=== PATIENT | female | born 1950 | race African-American/Black ===

== ENCOUNTER 2021-09-25 23:05 | Inpatient (IN) | payer MEDICARE, MEDICAID ==
[~2021-09-25] VITALS: Ht 162.6 cm; Wt 60.8 kg
[2021-09-26 01:01] LABS: CLARITY URINE CLEAR (CLEAR); COLOR URINE YELLOW (YELLOW); KETONES URINE NEGATIVE (NEGATIVE); LEUKOCYTE ESTERASE URINE 1+ (NEGATIVE); NITRITE URINE NEGATIVE (NEGATIVE); OCCULT BLOOD URINE NEGATIVE (NEGATIVE); PH URINE 5.5 (4.5-8.0); PROTEIN URINE TRACE (NEGATIVE); SPECIFIC GRAVITY URINE 1.011 (1.005-1.030); UROBILINOGEN URINE 0.2 E.U./dL (0.2-1.0)
[2021-09-26 01:08] LABS: HEMATOCRIT. 36.4 % (36.0-48.0); HEMOGLOBIN. 11.6 g/dL (12.0-16.0); MEAN CORPUSCULAR HEMOGLOBIN 26.2 pg (28.0-32.0); MEAN CORPUSCULAR VOLUME 82.1 fL (81.0-99.0); MEAN PLATELET VOLUME 8.1 fl (7.4-10.4); PLATELET 278 x1000/uL (130-400); RED BLOOD CELL COUNT 4.44 mill/uL (4.2-5.4); RED CELL DISTRIBUTION WIDTH 14.8 % (11.6-14.6)
[2021-09-26] MEDS ORDERED: CEFTRIAXONE 1 G PREMIX 50 ML IV NR (01:15)
[2021-09-26 01:18] LABS: CHLORIDE 106 mEq/L (98-107)
[2021-09-26 04:43] LABS: PLATELET ESTIMATE NORMAL
[2021-09-26] MEDS ORDERED: IOHEXOL-300 100 ML BOTTLE ONE (05:01)
[2021-09-26 09:00] VITALS: BP 158/75
[2021-09-26] MEDS ORDERED: CLONIDINE 0.1MG TABLET PO PRN (09:30)
[2021-09-26] MEDS ORDERED: DOCUSATE SODIUM 100MG CAPSULE PO PRN (09:30)
[2021-09-26] MEDS ORDERED: HYDROCODONE/ACETAMINOPHEN 5/325MG TABLET PO PRN (09:30)
[2021-09-26] MEDS ORDERED: ACETAMINOPHEN 325MG TABLET PO PRN (09:30)
[2021-09-26] MEDS ORDERED: ONDANSETRON HCL 4MG/2ML INJ IV PRN (09:30)
[2021-09-26] MEDS ORDERED: NALOXONE HCL 0.4MG/ML VIAL IV PRN (09:45)
[2021-09-26 11:23] VITALS: BP 158/75
[2021-09-26 12:00] VITALS: BP 141/74
[2021-09-26] MEDS: POTASSIUM CHLORIDE 20MEQ TABLET SR PO SCH (13:25)
[2021-09-26 16:00] VITALS: BP 154/74
[2021-09-26 18:01] LABS: TOTAL IRON BINDING CAPACITY 243 ug/dL (250-450)
[2021-09-26 18:23] LABS: FERRITIN 62 ng/mL (10-291)
[2021-09-26 18:36] LABS: FOLIC ACID (FOLATE) SERUM >20 ng/mL ng/mL (>5.38); VITAMIN B12 SERUM 1660 pg/mL (211-911)
[2021-09-26] MEDS: PANTOPRAZOLE SODIUM 40 MG/VIAL IV SCH (18:49)
[2021-09-26 19:55] LABS: HEMATOCRIT. 32.8 % (36.0-48.0); HEMOGLOBIN. 10.6 g/dL (12.0-16.0); MEAN CORPUSCULAR HEMOGLOBIN 26.1 pg (28.0-32.0); MEAN CORPUSCULAR VOLUME 81.2 fL (81.0-99.0); MEAN PLATELET VOLUME 8.8 fl (7.4-10.4); PLATELET 255 x1000/uL (130-400); RED BLOOD CELL COUNT 4.05 mill/uL (4.2-5.4); RED CELL DISTRIBUTION WIDTH 14.7 % (11.6-14.6)
[2021-09-26 20:00] VITALS: BP 159/85
[2021-09-26 22:03] LABS: PLATELET ESTIMATE NORMAL
[2021-09-27] VITALS: BP 124/63
[2021-09-27 01:30] LABS: HEMATOCRIT 27.4 % (36.0-48.0); HEMOGLOBIN 9.1 g/dL (12.0-16.0)
[2021-09-27] MEDS: PANTOPRAZOLE SODIUM 40 MG/VIAL IV SCH ×2 (02:44→17:36)
[2021-09-27 04:00] VITALS: BP 143/86
[2021-09-27 06:12] LABS: CHLORIDE 112 mEq/L (98-107)
[2021-09-27 06:21] LABS: HEMATOCRIT. 30.4 % (36.0-48.0); HEMOGLOBIN. 9.9 g/dL (12.0-16.0); MEAN CORPUSCULAR HEMOGLOBIN 26.3 pg (28.0-32.0); MEAN PLATELET VOLUME 8.9 fl (7.4-10.4); PLATELET 207 x1000/uL (130-400); RED BLOOD CELL COUNT 3.75 mill/uL (4.2-5.4); RED CELL DISTRIBUTION WIDTH 14.6 % (11.6-14.6)
[2021-09-27 06:35] LABS: HAPTOGLOBIN < 30 mg/dL (30-200)
[2021-09-27 08:02] VITALS: BP 141/68
[2021-09-27] MEDS: POTASSIUM CHLORIDE 20MEQ TABLET SR PO SCH (09:46)
[2021-09-27 12:00] VITALS: BP 145/65
[2021-09-27 14:02] LABS: PLATELET ESTIMATE NORMAL
[2021-09-27 15:33] LABS: HEMATOCRIT 34.6 % (36.0-48.0); HEMOGLOBIN 10.8 g/dL (12.0-16.0)
[2021-09-27 16:00] VITALS: BP 134/68
[2021-09-27 19:22] LABS: HEMATOCRIT 35.4 % (36.0-48.0)
[2021-09-27 20:00] VITALS: BP 116/59
[2021-09-28] VITALS: BP 144/73
[2021-09-28] MEDS: PANTOPRAZOLE SODIUM 40 MG/VIAL IV SCH (03:44)
[2021-09-28 04:00] VITALS: BP 139/63
[2021-09-28 06:33] LABS: HEMOGLOBIN. 9.2 g/dL (12.0-16.0); MEAN CORPUSCULAR HEMOGLOBIN 26.8 pg (28.0-32.0); MEAN CORPUSCULAR VOLUME 81.6 fL (81.0-99.0); MEAN PLATELET VOLUME 8.6 fl (7.4-10.4); PLATELET 223 x1000/uL (130-400); RED BLOOD CELL COUNT 3.43 mill/uL (4.2-5.4)
[2021-09-28 07:54] LABS: CHLORIDE 111 mEq/L (98-107)
[2021-09-28 08:00] VITALS: BP 125/78
[2021-09-28 10:20] VITALS: BP 125/78
[2021-09-28] MEDS: POTASSIUM CHLORIDE 20MEQ TABLET SR PO SCH (10:32)
[2021-09-29 07:16] LABS: PLATELET ESTIMATE NORMAL
== END 2021-09-28 10:45 | disposition home or self-care (01) | DRG 253 ==
LOC: ER 23:05 → 6WST 09-26 02:33 → ENRESERV 09-26 07:14
PROVIDERS: ADMIT Hospitalist; ATTEND Hospitalist
DX: K55.21 Angiodysplasia of colon with hemorrhage (principal); K76.89 Other specified diseases of liver; D50.0 Iron deficiency anemia secondary to blood loss (chronic); D72.829 Elevated white blood cell count, unspecified; N28.1 Cyst of kidney, acquired; N39.0 Urinary tract infection, site not specified; R59.9 Enlarged lymph nodes, unspecified; I10 Essential (primary) hypertension; K64.9 Unspecified hemorrhoids
CPT/HCPCS: 36415; 71045; 74177; 80048; 80053; 81003; 82270; 82607; 82728; 82746; 83010; 83540; 83550; 83615; 83735; 85014; 85018; 85025; 85044; 86880; 93970; 99285; C9113; J0696; Q9967

== ENCOUNTER 2022-07-08 13:55 | Inpatient (IN) | payer MEDICARE, MEDICAID ==
[~2022-07-08] VITALS: Ht 162.6 cm; Wt 53.5 kg
[2022-07-08 17:10] LABS: CHLORIDE 111 mEq/L (98-107)
[2022-07-08 17:16] LABS: HEMATOCRIT. 32.6 % (36.0-48.0); HEMOGLOBIN. 10.9 g/dL (12.0-16.0); MEAN CORPUSCULAR HEMOGLOBIN 27.9 pg (28.0-32.0); MEAN CORPUSCULAR VOLUME 83.8 fL (81.0-99.0); MEAN PLATELET VOLUME 9.1 fl (7.4-10.4); PLATELET 63 x1000/uL (130-400); RED BLOOD CELL COUNT 3.89 mill/uL (4.2-5.4); RED CELL DISTRIBUTION WIDTH 14.9 % (11.6-14.6)
[2022-07-08] MEDS ORDERED: SODIUM CHLORIDE 0.9% 1000ML BAG (SEPSIS BOLUS) IV ONE (18:00)
[2022-07-08 20:11] LABS: CHLORIDE 111 mEq/L (98-107); INR 1.1; PARTIAL THROMBOPLASTIN TIME 27.1 sec (23.4-31.0); PROTHROMBIN TIME 11.7 sec (9.6-11.0)
[2022-07-08 20:27] LABS: PLATELET ESTIMATE DECREASED
[2022-07-09] MEDS ORDERED: FERR-71 MT (03:02)
[2022-07-09] MEDS ORDERED: AMLO10TA80 PO (03:02)
[2022-07-09] MEDS ORDERED: CALC-1042 MT (03:02)
[2022-07-09 03:16] VITALS: BP 124/67
[2022-07-09 04:00] VITALS: BP 131/61
[2022-07-09] MEDS ORDERED: ACETAMINOPHEN 325MG TABLET PO PRN (09:30)
[2022-07-09] MEDS ORDERED: ONDANSETRON HCL 4MG/2ML INJ IV PRN (09:30)
[2022-07-09] MEDS ORDERED: IPRATROPIUM/ALBUTEROL 0.5-3(2.5)MG/3ML NEB HHN PRN (09:30)
[2022-07-09] MEDS ORDERED: DIPHENHYDRAMINE 50MG/ML VIAL IV PRN (09:30)
[2022-07-09] MEDS ORDERED: CLONIDINE 0.1MG TABLET PO PRN (09:30)
[2022-07-09 13:10] LABS: HEPATITIS B SURFACE ANTIGEN NEGATIVE
[2022-07-09] MEDS: AMLODIPINE 10MG TABLET PO SCH (14:50)
[2022-07-09 20:00] VITALS: BP 118/80
[2022-07-09 23:52] VITALS: BP 128/62
[2022-07-10 04:00] VITALS: BP 142/87
[2022-07-10 06:41] LABS: HEMATOCRIT. 31.9 % (36.0-48.0); HEMOGLOBIN. 10.3 g/dL (12.0-16.0); MEAN CORPUSCULAR HEMOGLOBIN 27.7 pg (28.0-32.0); MEAN CORPUSCULAR VOLUME 85.5 fL (81.0-99.0); MEAN PLATELET VOLUME 9.1 fl (7.4-10.4); RED BLOOD CELL COUNT 3.73 mill/uL (4.2-5.4); RED CELL DISTRIBUTION WIDTH 14.7 % (11.6-14.6)
[2022-07-10 07:02] LABS: CHLORIDE 109 mEq/L (98-107)
[2022-07-10 07:57] LABS: HAPTOGLOBIN < 8 mg/dL (30-200)
[2022-07-10 08:00] VITALS: BP 128/71
[2022-07-10] MEDS: AMLODIPINE 10MG TABLET PO SCH (09:00)
[2022-07-10 11:51] VITALS: BP 128/71
[2022-07-11 11:16] LABS: PLATELET ESTIMATE MARKEDLY DECREASED
[2022-07-11 11:18] LABS: PLATELET 38 x1000/uL (130-400)
== END 2022-07-10 14:19 | disposition home or self-care (01) | DRG 691 ==
LOC: ER 13:55 → MICUSO 22:48 → 7EST 07-09 03:10
PROVIDERS: ADMIT Internal Medicine; ATTEND Internal Medicine
DX: C95.90 Leukemia, unspecified not having achieved remission (principal); D69.6 Thrombocytopenia, unspecified; I10 Essential (primary) hypertension; C91.10 Chronic lymphocytic leukemia of B-cell type not having achieved remission
CPT/HCPCS: 36415; 71045; 80053; 83010; 83605; 83615; 83880; 84145; 84484; 84550; 85025; 86803; 86850; 86880; 86900; 87340; 93005; 93970; 99285; J7030

== ENCOUNTER 2023-05-16 15:35 | Emergency (ER) | payer MEDICARE, MEDICAID ==
[~2023-05-16] VITALS: Ht 162.6 cm; Wt 52.0 kg
[~2023-05-16 15:35] MED LIST: AMLO10TA80 PO; CALC-1042 MT; FERR-71 MT
[2023-05-16 15:50] VITALS: BP 117/54; PULSE 91; RESP 12; TEMP 98.5; O2SAT 100
[2023-05-16 19:11] LABS: HEMATOCRIT. 33.3 % (36.0-48.0); HEMOGLOBIN. 10.8 g/dL (12.0-16.0); MEAN CORPUSCULAR HEMOGLOBIN 25.8 pg (28.0-32.0); MEAN CORPUSCULAR HGB CONC 32.4 g/dL (31.0-37.0); MEAN CORPUSCULAR VOLUME 79.7 fL (81.0-99.0); MEAN PLATELET VOLUME 12.2 fl (7.4-10.4); RED BLOOD CELL COUNT 4.17 mill/uL (4.2-5.4); RED CELL DISTRIBUTION WIDTH 15.5 % (11.6-14.6)
[2023-05-16 19:15] LABS: DIFFERENTIAL COMMENT 1; PLATELET 9 x1000/uL (130-400); WHITE BLOOD COUNT 234.2 x1000/uL (4.5-11.0)
[2023-05-16 19:19] LABS: ALANINE AMINOTRANSFERASE 8 IU/L (10-49); ASPARTATE AMINOTRANSFERASE 23 IU/L (<34); BILIRUBIN TOTAL 0.6 mg/dL (0.1-1.0); CALCIUM 9.2 mg/dL (8.7-10.4); CARBON DIOXIDE 24 mEq/L (21-32); CHLORIDE 106 mEq/L (98-107); GLUCOSE 108 mg/dL (70-105); POTASSIUM 4.2 mEq/L (3.5-5.1); PROTEIN TOTAL 8.2 g/dL (6.0-8.3); SODIUM 138 mEq/L (136-145); UREA NITROGEN BLOOD 15 mg/dL (9-23)
[2023-05-16 19:51] LABS: PLATELET ESTIMATE MARKEDLY DECREASED
[2023-05-16 19:52] LABS: MICROCYTOSIS 1+
== END 2023-05-16 20:25 | disposition left against medical advice (07) ==
LOC: ER 15:35 → CANBEDREQ 21:44
DX: D69.6 Thrombocytopenia, unspecified (principal); C94.80 Other specified leukemias not having achieved remission; I10 Essential (primary) hypertension
CPT/HCPCS: 36415; 80053; 85025; 85044; 99283

== ENCOUNTER 2023-10-15 09:17 | Emergency (ER) | payer MEDICARE, OTHER ==
[~2023-10-15] VITALS: Ht 162.6 cm; Wt 65.0 kg
[~2023-10-15 09:17] MED LIST changes: +P20 MT
[2023-10-15 09:19] VITALS: O2SAT 99
[2023-10-15 10:45] LABS: HEMATOCRIT. 24.4 % (36.0-48.0); HEMOGLOBIN. 7.4 g/dL (12.0-16.0); MEAN CORPUSCULAR HEMOGLOBIN 25.3 pg (28.0-32.0); MEAN CORPUSCULAR HGB CONC 30.2 g/dL (31.0-37.0); MEAN CORPUSCULAR VOLUME 83.9 fL (81.0-99.0); MEAN PLATELET VOLUME 11.2 fl (7.4-10.4); RED BLOOD CELL COUNT 2.91 mill/uL (4.2-5.4); RED CELL DISTRIBUTION WIDTH 19.5 % (11.6-14.6)
[2023-10-15 10:55] LABS: CHLORIDE 107 mEq/L (98-107); POTASSIUM 3.9 mEq/L (3.5-5.1); SODIUM 137 mEq/L (136-145)
[2023-10-15 10:56] LABS: CARBON DIOXIDE 24 mEq/L (21-32)
[2023-10-15 10:57] LABS: INR 1.1; PARTIAL THROMBOPLASTIN TIME < 21.0 sec (23.4-31.0); PROTHROMBIN TIME 11.8 sec (9.6-11.0)
[2023-10-15 11:01] LABS: CREATININE 0.6 mg/dL (0.6-1.0); GLUCOSE 122 mg/dL (70-105); UREA NITROGEN BLOOD 24 mg/dL (9-23)
[2023-10-15 11:04] LABS: ALANINE AMINOTRANSFERASE 36 IU/L (10-49); ALBUMIN 2.9 g/dL (3.2-4.8); ASPARTATE AMINOTRANSFERASE 18 IU/L (<34); BILIRUBIN DIRECT 0.2 mg/dL (<=3.0); BILIRUBIN TOTAL 0.6 mg/dL (0.1-1.0); PROTEIN TOTAL 6.3 g/dL (6.0-8.3); TROPONIN I HIGH SENSITIVITY 12 ng/L (3.0-34)
[2023-10-15 11:05] LABS: DIFFERENTIAL COMMENT 1
[2023-10-15 11:09] LABS: PLATELET 11 x1000/uL (130-400); WHITE BLOOD COUNT 59.1 x1000/uL (4.5-11.0)
[2023-10-15 12:11] LABS: PLATELET ESTIMATE MARKEDLY DECREASED; SMUDGE CELLS 1+
[2023-10-15 12:12] LABS: ANISOCYTOSIS 1+; HYPOCHROMASIA 1+
[2023-10-15] MEDS: SODIUM CHLORIDE 0.9% 1,000 ML IV ONE (12:27)
[2023-10-15 12:34] LABS: TROPONIN I HIGH SENSITIVITY 11 ng/L (3.0-34)
[2023-10-15 12:57] LABS: CLARITY URINE CLEAR (CLEAR); COLOR URINE YELLOW (YELLOW); GLUCOSE URINE NEGATIVE (NEGATIVE); KETONES URINE NEGATIVE (NEGATIVE); LEUKOCYTE ESTERASE URINE 1+ (NEGATIVE); NITRITE URINE NEGATIVE (NEGATIVE); OCCULT BLOOD URINE NEGATIVE (NEGATIVE); PH URINE 6.5 (4.5-8.0); PROTEIN URINE NEGATIVE (NEGATIVE); SPECIFIC GRAVITY URINE 1.013 (1.005-1.030); UROBILINOGEN URINE 0.2 E.U./dL (0.2-1.0)
[2023-10-15 13:12] LABS: BACTERIA URINE 1+; RBC URINE 0-2 /hpf (0-2); YEAST URINE NONE SEEN
[2023-10-15 13:13] LABS: SQUAMOUS EPITHELIAL CELL URINE FEW /lpf (RARE/1+)
[2023-10-15] MEDS ORDERED: CEFP200T13 MT (14:24)
[2023-10-15] MEDS: CEFTRIAXONE 1GM/50ML 50 ML IV ONE (14:37)
[2023-10-15 18:07] VITALS: BP 125/71; PULSE 63; RESP 16; TEMP 98.1
== END 2023-10-15 18:11 | disposition home or self-care (01) ==
LOC: ER 09:17
DX: R55 Syncope and collapse (principal); D69.6 Thrombocytopenia, unspecified; C91.10 Chronic lymphocytic leukemia of B-cell type not having achieved remission; I10 Essential (primary) hypertension; Z98.890 Other specified postprocedural states
CPT/HCPCS: 80076; 80048; 81003; 83880; 83690; 85025; 85610; 85730; 86850; 86900; 86901; 86920; 84484; 36415; 71045; 93005; 96361; 96365; 99285; J0696; J7030; Z7610 ×3; 36430; P9016